=== PATIENT | female | born 1975 | race Caucasian/White ===

== ENCOUNTER 2017-04-28 09:52 | Emergency (ER) | payer SELFPAY ==
[~2017-04-28] VITALS: Ht 165.1 cm; Wt 89.5 kg
[~2017-04-28 09:52] MED LIST: ACET1TAB40 PO; ACET500C5 PO; IBUP-1542 PO; LORA10TA3 PO; ONDA4TAB35 PO; UDROBDM PO
[2017-04-28 10:09] VITALS: Ht 165.1 cm; Wt 89.5 kg
[2017-04-28] MEDS ORDERED: ONDANSETRON 4 MG INJ IV STA ×2 (11:29→15:03)
[2017-04-28] MEDS ORDERED: SOD CHLORIDE 0.9% 1,000 ML IV STA (11:29)
[2017-04-28 11:49] LABS: ADD SCAN DIFF NO
[2017-04-28 11:54] LABS: BASOPHILS % 0.3 % (0.0-2.0); EOSINOPHILS # 0.1 10^3/ul (0.0-0.5); EOSINOPHILS % 2.9 % (0.0-7.0); HEMATOCRIT 41.4 % (37.0-47.0); HEMOGLOBIN 13.9 g/dl (12.0-16.0); LYMPHOCYTES # 0.8 10^3/ul (0.8-2.9); LYMPHOCYTES % 20.4 % (15.0-51.0); MEAN CORPUSCULAR HEMOGLOBIN 29.4 pg (29.0-33.0); MEAN CORPUSCULAR HGB CONC 33.6 g/dl (32.0-37.0); MEAN CORPUSCULAR VOLUME 87.5 fl (82.0-101.0); MEAN PLATELET VOLUME 10.3 fl (7.4-10.4); MONOCYTE # 0.2 10^3/ul (0.3-0.9); MONOCYTES % 5.6 % (0.0-11.0); NEUTROPHIL # 2.7 10^3/ul (1.6-7.5); NEUTROPHILS % 70.5 % (39.0-77.0); PLATELET COUNT 249 10^3/UL (140-415); RED BLOOD COUNT 4.73 10^6/ul (4.20-5.40); RED CELL DISTRIBUTION WIDTH 12.7 % (11.5-14.5); WHITE BLOOD COUNT 3.8 10^3/ul (4.8-10.8)
[2017-04-28 12:22] LABS: ALBUMIN 4.7 g/dl (3.3-4.9); ALBUMIN/GLOBULIN RATIO 1.46; BILIRUBIN,INDIRECT 0.2 mg/dl (0-1.1); BILIRUBIN,TOTAL 0.2 mg/dl (0.2-1.3); CALCIUM 8.5 mg/dl (8.4-10.2); CREATININE 0.63 mg/dl (0.44-1.00); POTASSIUM 3.2 mmol/L (3.5-5.1); TOTAL PROTEIN 7.9 g/dl (6.1-8.1)
--- NOTE | 2017-04-28 12:45 | RADRPT ---
PROCEDURE: Chest Radiograph. CLINICAL INDICATION: Pneumothorax. TECHNIQUE: Single frontal chest radiograph. COMPARISON: None available FINDINGS: The cardiomediastinal silhouette is within normal limits. There is no evidence of pneumothorax. No infiltrate or effusion is seen. The bones are intact. IMPRESSION: 1. Unremarkable chest radiograph. RPTAT: KK .Deandre Vyas MD, MD Date Time Electronically viewed and signed by .Deandre Vyas MD, on 04/28/2017 12:45 .B/
[2017-04-28] MEDS ORDERED: ACETAMINOPHEN 500 MG TAB PO STA (14:55)
[2017-04-28 14:57] LABS: URINE BLOOD (Dip) POC 3+ (NEGATIVE)
[2017-04-28] MEDS ORDERED: TRIM300C16 PO (14:59)
--- NOTE | 2017-04-28 15:19 | ERD ---
ER Documentation Chief Complaint Date/Time DATE: 04/28/17 TIME: 15:13 Chief Complaint felix with n/v x 1 week; fever; - flu like symptoms HPI This is a 42-year-old female presenting to the emergency department complaining of cough, nausea, vomiting, headache for the past week. Patient states that she was seen at [facility] on Wednesday and they have told her that she might have early pneumonia in which they have given her antibiotics, inhaler and pain medicine relief medications. Patient states that she continues to have nausea with vomiting. She denies any diarrhea, abdominal pain, fever. She states that her last bowel movement was today and normal. Patient is unsure of the antibiotic name, she states she takes it once a day for 7 days ROS All systems reviewed and are negative except as per history of present illness. Medications Home Meds Active Scripts Trimethobenzamide Hcl* (Tigan*) 300 Mg Capsule, 300 MG PO QID Y for NAUSEA, #14 CAP Prov:TIMMY BLANTON PA-C 04/28/17 Acetaminophen* (Tylophen*) 500 Mg Capsule, 1 CAP PO Q6H Y for PAIN AND OR ELEVATED TEMP, #30 CAP 0 Refills Prov:MAGALYS MACIEL PA-C 02/04/16 Guaifenesin-Dextromethorphan* (Robitussin* DM) 100MG/10MG/5ML Syrup, 5 ML PO Q6H Y for COUGH, #120 ML 0 Refills Prov:MAGALYS MACIEL PA-C 02/04/16 Ondansetron Hcl* (Zofran* ODT) 4 mg -ODT Tab.disper, 4 MG PO DAILY for NAUSEA AND/OR VOMITING, #10 TAB 0 Refills Prov:MAGALYS MACIEL PA-C 02/04/16 Loratadine* (Loratadine*) 10 Mg Tablet, 10 MG PO DAILY, #30 TAB 0 Refills Prov:MAGALYS MACIEL PA-C 02/04/16 Acetaminophen-Codeine* (Acetaminophen-Cod #3*) 300-30 Mg Tab, 1 TAB PO Q4H Y for PAIN LEVEL 6-10, #15 TAB Prov:CHO,ALYSSIA 05/07/15 Ibuprofen* (Motrin*) 600 Mg Tab, 600 MG PO Q6 for PAIN LEVEL 1-5, #15 TAB Prov:CHO,ALYSSIA 05/07/15 Allergies Allergies: Coded Allergies: No Known Allergy (Unverified , 04/28/17) PMhx/Soc History of Surgery: No Anesthesia Reaction: No Hx Neurological Disorder: No Hx Respiratory Disorders: No Hx Cardiac Disorders: No Hx Psychiatric Problems: No Hx Miscellaneous Medical Probl: No Hx Alcohol Use: No Hx Substance Use: No Hx Tobacco Use: No Smoking Status: Never smoker Physical Exam Vitals Vital Signs Date Time Temp Pulse Resp B/P Pulse Ox O2 Delivery O2 Flow Rate FiO2 04/28/17 10:09 98.2 65 18 113/57 100 Physical Exam GENERAL: well-developed/well-nourished, in no apparent distress, non-toxic appearing HEAD: NC/AT, no swelling noted in frontal or maxillary areas EARS: bilateral tympanic membrane is intact without erythema or effusion NARES: congested THROAT: oropharynx non-erythematous without exudates, no tonsil enlargement, post nasal drip EYES: Conjunctiva normal NECK: Supple, no lymphadenopathy PULM: CTA bilaterally, no rales, rhonchi, or wheezing heard CV: Normal S1S2, RRR, good capillary refill GI: Soft, non-distended, normal bowel sounds, non-tender BACK: No midline tenderness, no masses EXT No clubbing, cyanosis, or edema NEURO: Alert and Orientated SKIN: Intact, normal turgor PSYCH: Normal mood and mentation Result Diagram: 04/28/17 1143 04/28/17 1143 Results 24 hrs Laboratory Tests Test 04/28/17 11:43 04/28/17 15:00 White Blood Count 3.810^3/ul Red Blood Count 4.7310^6/ul Hemoglobin 13.9g/dl Hematocrit 41.4% Mean Corpuscular Volume 87.5fl Mean Corpuscular Hemoglobin 29.4pg Mean Corpuscular Hemoglobin Concent 33.6g/dl Red Cell Distribution Width 12.7% Platelet Count 76005^3/UL Mean Platelet Volume 10.3fl Neutrophils % 70.5% Lymphocytes % 20.4% Monocytes % 5.6% Eosinophils % 2.9% Basophils % 0.3% Nucleated Red Blood Cells % 0.0/100WBC Neutrophils # 2.710^3/ul Lymphocytes # 0.810^3/ul Monocytes # 0.210^3/ul Eosinophils # 0.110^3/ul Basophils # 0.010^3/ul Nucleated Red Blood Cells # 0.010^3/ul Sodium Level 141mmol/L Potassium Level 3.2mmol/L Chloride Level 104mmol/L Carbon Dioxide Level 27mmol/L Anion Gap 13 Blood Urea Nitrogen 8mg/dl Creatinine 0.63mg/dl Glucose Level 118mg/dl Calcium Level 8.5mg/dl Total Bilirubin 0.2mg/dl Direct Bilirubin 0.00mg/dl Indirect Bilirubin 0.2mg/dl Aspartate Amino Transf (AST/SGOT) 44IU/L Alanine Aminotransferase (ALT/SGPT) 76IU/L Alkaline Phosphatase 58IU/L Total Protein 7.9g/dl Albumin 4.7g/dl Globulin 3.20g/dl Albumin/Globulin Ratio 1.46 Lipase 49U/L Bedside Urine pH (LAB) 7.0 Bedside Urine Protein (LAB) Trace Bedside Urine Glucose (UA) Negative Bedside Urine Ketones (LAB) Negative Bedside Urine Blood 3+ Bedside Urine Nitrite (LAB) Negative Bedside Urine Leukocyte Esterase (L Negative Current Medications Medications (Trade) Dose Ordered Sig/Brian Route PRN Reason Start Time Stop Time Status Last Admin Dose Admin Sodium Chloride (NS) 1,000 ml @ 1,000 mls/hr Q1H STAT IV 04/28/17 11:29 04/28/17 12:28 DC 04/28/17 11:46 Ondansetron HCl (Zofran Inj) 4 mg ONCE STAT IV 04/28/17 11:29 04/28/17 11:33 DC 04/28/17 11:46 Acetaminophen (Tylenol Tab) 1,000 mg ONCE STAT PO 04/28/17 14:55 04/28/17 14:57 DC Ondansetron HCl (Zofran Inj) 4 mg ONCE STAT IV 04/28/17 15:03 04/28/17 15:04 DC 04/28/17 15:06 Procedures/MDM This is a 42-year-old female presenting to the emergency department with cough, nausea, vomiting, which is likely due to a viral syndrome. There was no evidence of pneumonia, strep pharyngitis, otitis media. Patient did not have any abdominal pain I have a low suspicion for acute abdomen at this time. IV access established, patient was given 1 L fluids, antiemetic and pain relief. I have reassessed her and she appears to be better. Lab work was drawn. CBC did not show any evidence of leukocytosis or anemia. CMP did not show any evidence of renal, liver, or electrolyte abnormalities. Lipase was normal. UA did not show any evidence of hemoglobin or urinary tract infection. Chest x- ray did not show any evidence of infiltrates, pneumothorax or pleural effusion. However I have discussed with her to continue her antibiotics as prescribed at the other physician. Patient is suitable to follow-up with her primary care physician for further evaluation management tomorrow. Discussed return the ER for any worsening symptoms. Patient stable for discharge for home. She understands and agrees with Departure Diagnosis: Primary Impression: Viral syndrome Condition: Stable Patient Instructions: Uri, Viral W/ Wheezing (Adult), Viral Syndrome (Adult) Additional Instructions: Continue medications as prescribed by other physician. Continuar con medicamentos prescritos por otro mdico [facility] toda la medicina mago y andrea se le indic. Regrese a estas instalaciones si no se mejora andrea esperbamos o andrea le dijimos. Llame al doctor MAANA y alex brooke JESUS PARA DENTRO DE 1-2 LUEVANO.Dgale a la secretaria que nosotros le instruimos hacer esta jesus.Avise o llame si espinosa condicin se empeora antes de la jesus. Regresa aqui si peor o no mejor. TIMMY BLANTON PA-C Apr 28, 2017 15:19
[2017-04-28] MEDS ORDERED: TRIMETHOBENZAMIDE 100 MG/ML VIAL IM STA (15:23)
[2017-04-28 16:03] VITALS: BP 106/77; PULSE 67; RESP 18; TEMP 98
== END 2017-04-28 16:04 | disposition home or self-care (01) ==
LOC: FTE 09:52
DX: B34.9 Viral infection, unspecified (principal); R50.9 Fever, unspecified
CPT/HCPCS: 36415; 71010; 80053; 81003; 83690; 85025; 96372; 96374; 96376; 99284; J2405; J3250; J7030